=== PATIENT | female | born 1950 | race African-American/Black ===

== ENCOUNTER 2019-12-20 19:42 | Emergency (ER) | payer MEDICARE, SELFPAY ==
[2019-12-20] MEDS ORDERED: Ketorolac Tromethamine 30 MG/ML VIAL ONE (21:19)
--- NOTE | 2019-12-20 21:44 | RAD ---
LUMBAR SPINE SERIES THREE VIEWS: History: Low back pain and bilateral leg pain. FINDINGS: Vertebral bodies are normal in height. Degenerative osteophytic change along the course of the spine but only mild disc narrowing at L4-5. Some moderate degenerative facet changes at the lower lumbar sp ine. Pedicles are intact. IMPRESSION: Mild arthritic changes of the spine. POS: OFF
--- NOTE | 2019-12-20 21:48 | RAD ---
LEFT RING FINGER: Date: 12/20/2019 HISTORY: Numbness to left fourth digit that started a few days ago. FINDINGS: There are no signs of fracture or dislocation. Minimal arthritic change is noted of the finger. IMPRESSION: No acute findings. POS: OFF
== END 2019-12-20 21:57 | disposition home or self-care (01) ==
LOC: ERS 19:42
DX: M54.41 Lumbago with sciatica, right side (principal); M54.42 Lumbago with sciatica, left side; I10 Essential (primary) hypertension; E78.5 Hyperlipidemia, unspecified
CPT/HCPCS: 72100; 96372; J1885